=== PATIENT | female | born 1990 | race Caucasian/White ===

== ENCOUNTER 2024-04-01 12:19 | Outpatient (CLI) | payer OTHER, SELFPAY ==
--- NOTE | ~2024-04-01 | XR_ITS ---
AP and oblique views of the SI joints CLINICAL HISTORY: Lumbago, sciatica FINDINGS: SI joints and hip joints are unremarkable. Soft tissues are unremarkable. No fracture or di slocation seen. No evidence for inflammatory arthropathy. IMPRESSION: Unremarkable exam. Reviewed, dictated and finalized at location . [employer] IMPRESSION: Unremarkable exam.
--- NOTE | ~2024-04-01 | XR_ITS ---
AP view of the pelvis and AP and lateral views of the bilateral hip Clinical history: Pain Findings: No acute fracture or dislocation is seen. Osseous alignment is anatomic. Bilateral hip and SI joint spaces are preserved. Soft tissues are unremarkable. Impression: No significant abnormality is seen. Reviewed, dictated and finalized at [facility]. [employer] Impression: No significant abnormality is seen.
== END 2024-04-01 12:20 | disposition home or self-care (01) ==
LOC: MICIMG 12:27
PROVIDERS: PCP Internal Medicine; Visit Provider Internal Medicine
DX: M54.41 Lumbago with sciatica, right side (principal); G89.29 Other chronic pain
CPT/HCPCS: 72202; 73521